=== PATIENT | female | born 1955 | race Caucasian/White ===

== ENCOUNTER → 2016-05-31 | Outpatient (CLI) | payer BC ==
[~2016-05-31] MED LIST: CHOL100010 PO; CLR10 PO; ESTR1CRE PV; MRLP120
[2016-05-31 17:57] LABS: BLOOD UREA NITROGEN 16 mg/dl (7-18); BUN/CREATININE RATIO 14.3 (10-20); CALCIUM 9.3 mg/dl (8.5-10.1); CARBON DIOXIDE 29 mmol/L (21-32); CHLORIDE 100 mmol/L (98-107); GLUCOSE 83 mg/dl (70-99); POTASSIUM 4.1 mmol/L (3.5-5.1); SODIUM 138 mmol/L (136-145)
== END | disposition home or self-care (01) ==
LOC: C.LABPVFM 16:18
PROVIDERS: ATTEND Nurse Practitioner
DX: R42 Dizziness and giddiness (principal)

== ENCOUNTER → 2016-07-22 | Outpatient (CLI) | payer BC ==
[~2016-07-22] MED LIST changes: +PRLSR20 PO
[2016-07-22 16:48] LABS: HEMATOCRIT 41.2 % (37-47); MEAN CELL VOLUME 95.8 fL (80-100); MEAN CORPUSCULAR HEMOGLOBIN 31.6 pg (25-34); MEAN PLATELET VOLUME 12.7 fL (7.4-10.4); PLATELET COUNT 150 K/uL (130-400); WHITE BLOOD COUNT 5.65 K/uL (4.8-10.8)
== END | disposition home or self-care (01) ==
LOC: C.LAB1850 16:04
PROVIDERS: ATTEND Internal Medicine Clinical Cardiac Electrophysiology
DX: R07.1 Chest pain on breathing (principal)

== ENCOUNTER → 2016-08-07 | Outpatient (CLI) | payer BC | END | disposition home or self-care (01) | LOC: C.LABPVFM 08:58 | PROVIDERS: ATTEND Nurse Practitioner | DX: Z11.59 Encounter for screening for other viral diseases (principal) ==

== ENCOUNTER → 2016-11-22 | Outpatient (CLI) | payer BC ==
[~2016-11-22] MED LIST changes: -PRLSR20 PO
--- NOTE | 2016-11-22 12:02 | DIAGNOSTIC IMAGING REPORT ---
CHEST 2 VIEWS ROUTINE CLINICAL HISTORY: Chest pressure. Dyspnea on exertion. COMPARISON STUDY: No previous studies for comparison. FINDINGS: Lung volumes are normal. No consolidation is identified and there is no evidence of pulmonary edema. Cardiomediastinal silhouette is normal. No pneumothorax or pleural effusion is present. IMPRESSION: No acute cardiopulmonary findings. Electronically signed by: Pablo Bolden M.D. 11/22/2016 12:00 PM Dictated Date/Time: 11/22/2016 11:59 AM
[2016-11-22 17:46] LABS: ALT/SGPT 22 U/L (12-78); BLOOD UREA NITROGEN 16 mg/dl (7-18); BUN/CREATININE RATIO 17.7 (10-20); CALCIUM 9.5 mg/dl (8.5-10.1); CARBON DIOXIDE 31 mmol/L (21-32); CHLORIDE 103 mmol/L (98-107); CHOLESTEROL 184 mg/dl (0-200); CREATININE 0.92 mg/dl (0.60-1.20); GLUCOSE 96 mg/dl (70-99); POTASSIUM 3.9 mmol/L (3.5-5.1); SODIUM 139 mmol/L (136-145); TRIGLYCERIDES 58 mg/dl (0-150); VERY LOW DENSITY LIPOPROT CALC 12 mg/dl
[2016-11-22 17:57] LABS: ALB/GLOB RATIO 1.2 (0.9-2); ALKALINE PHOSPHATASE 71 U/L (45-117); AST/SGOT 23 U/L (15-37); CHOLESTEROL/HDL RATIO 2.2; HDL CHOLESTEROL 83 mg/dl; LDL CHOLESTEROL CALCULATED 89 mg/dl
[2016-11-22 18:03] LABS: BASO % 0.5 %; BASO ABS # 0.03 K/uL (0-0.2); COMPLETE YES; HEMATOCRIT 44.1 % (37-47); IG% 0.2 %; LYMPH % 33.3 %; MEAN CELL VOLUME 93.8 fL (80-100); MEAN CORPUSCULAR HEMOGLOBIN 31.9 pg (25-34); MEAN PLATELET VOLUME 12.9 fL (7.4-10.4); MONO % 6.8 %; NEUT % 58.2 %; PLATELET COUNT 165 K/uL (130-400)
== END | disposition home or self-care (01) ==
LOC: C.RADPV 11:31
PROVIDERS: ATTEND Nurse Practitioner
DX: R07.89 Other chest pain (principal); R06.09 Other forms of dyspnea

== ENCOUNTER → 2017-01-18 | Outpatient (CLI) | payer BC ==
[~2017-01-18] MED LIST changes: +OPTIRAY 320 IV PRN
--- NOTE | 2017-01-18 13:55 | DIAGNOSTIC IMAGING REPORT ---
CHEST CT WITH CONTRAST CT DOSE: 216.48 mGy.cm HISTORY: Acute atypical chest pain with dyspnea on exertion SOB TECHNIQUE: Multiaxial CT images of the chest were performed following the intravenous administration of contrast. A dose lowering technique was utilized adhering to the principles of ALARA. COMPARISON: Chest radiographs 11/22/2016. FINDINGS: No dominant thyroid nodule identified. Mildly prominent and mildly enlarged lymph nodes of the mediastinum are present, for example precarinal lymph node measures 9 mm in short axis on image 135 and right hilar lymph node measures 11 mm in short axis, also on image 135. Prominent subcarinal lymph node on image 140 measures 9 mm. These are nonspecific. The heart is upper limits of normal in size. No pericardial effusion. Thoracic aorta is normal in course and caliber without dissection or aneurysm. The imaged great vessels appear patent. Pulmonary arterial tree is not well opacified, however appears unremarkable. No pleural effusion. No pneumothorax. Mild biapical pleural-parenchymal scarring. Linear bandlike subsegmental consolidative opacities of the lung bases suggest atelectasis. No suspicious pulmonary nodules are identified. The central airways are patent. Cyst of the superior pole right kidney measures up to 3.2 cm. Prior cholecystectomy. Ill-defined low attenuating 6 mm lesion seen within the left hepatic lobe, too small to characterize on this study. Soft tissues are unremarkable. Probable hemangiomas are noted within several vertebral bodies, notably T3, T11 and T12 measuring up to 2.0 cm. IMPRESSION: 1. No acute intrathoracic abnormality identified. 2. Mild mediastinal adenopathy is nonspecific and likely reactive. 3. Prior cholecystectomy. 4. Additional incidental findings as above. Electronically signed by: Cristopher Shaw M.D. 01/18/2017 1:54 PM Dictated Date/Time: 01/18/2017 1:43 PM
[2017-01-18 14:44] LABS: BASO % 0.2 %; BASO ABS # 0.01 K/uL (0-0.2); COMPLETE YES; IG% 0.2 %; LYMPH % 26.7 %; LYMPH ABS # 1.57 K/uL (1.2-3.4); MEAN CELL VOLUME 93.7 fL (80-100); MEAN CORPUSCULAR HEMOGLOBIN 31.4 pg (25-34); MEAN CORPUSCULAR HGB CONC 33.5 g/dl (32-36); MEAN PLATELET VOLUME 12.4 fL (7.4-10.4); NEUT % 65.9 %; PLATELET COUNT 142 K/uL (130-400); RED BLOOD COUNT 4.59 M/uL (4.2-5.4); WHITE BLOOD COUNT 5.87 K/uL (4.8-10.8)
[2017-01-18 14:50] LABS: PARTIAL THROMBOPLASTIN RATIO 1.2; PROTHROMBIN TIME (PATIENT) 10.6 SECONDS (9.0-12.0)
[2017-01-18 15:27] LABS: ALT/SGPT 22 U/L (12-78); AST/SGOT 19 U/L (15-37); BLOOD UREA NITROGEN 16 mg/dl (7-18); BUN/CREATININE RATIO 19.9 (10-20); CALCIUM 8.9 mg/dl (8.5-10.1); CARBON DIOXIDE 30 mmol/L (21-32); CHLORIDE 103 mmol/L (98-107); CREATININE 0.79 mg/dl (0.60-1.20); GLUCOSE 81 mg/dl (70-99); POTASSIUM 3.9 mmol/L (3.5-5.1); SODIUM 139 mmol/L (136-145)
[2017-01-18 15:30] LABS: ALB/GLOB RATIO 1.2 (0.9-2); ALKALINE PHOSPHATASE 77 U/L (45-117)
== END | disposition home or self-care (01) ==
LOC: C.CTS 12:56
PROVIDERS: ATTEND Internal Medicine Pulmonary Disease
DX: R06.09 Other forms of dyspnea (principal); R07.1 Chest pain on breathing

== ENCOUNTER 2017-01-31 07:30 | Day surgery (SDC) | payer BC ==
[~2017-01-31] VITALS: Ht 177.8 cm; Wt 75.0 kg
[2017-01-31] VITALS (12 sets, daily range): BP systolic 113–161; BP diastolic 73–86; PULSE 52–72; TEMP 36.4–36.6; O2SAT 97–100; Ht 177.8 cm; Wt 75.0 kg
[~2017-01-31 07:30] MED LIST changes: -OPTIRAY 320 IV PRN
[2017-01-31] MEDS ORDERED: MIDAZOLAM HCL 5 MG/ML 1 ML VIAL IV ONE ×2 (07:31→10:00)
[2017-01-31] MEDS ORDERED: LIDOCAINE HCL 2% LOCAL 50ML VIAL INFIL ONE (07:31)
[2017-01-31] MEDS ORDERED: FENTANYL CITRATE INJ 50 MCG/1 ML 2 ML VIAL IV ONE ×2 (07:31→10:00)
[2017-01-31] MEDS ORDERED: LIDOCAINE 4% W/AFRIN NASAL SOLN 4ML ONE (07:31)
[2017-01-31] MEDS ORDERED: PRLSR20 PO (07:50)
--- NOTE | 2017-01-31 08:49 | History & Physical Bridge Note ---
H&P Re-Evaluation Bridge Note: I have examined the patient, reviewed the History & Physical and in the interval since the performance of the History & Physical I have noted the following changes of clinical significance: No changes noted
--- NOTE | 2017-01-31 08:49 | History and Physical ---
History & Physical Date Jan 31, 2017. Chief Complaint CC: Dyspnea on exertion History of Present Illness The patient is a 61 year old female with complaints of CC: Dyspnea on exertion 62-year-old female being worked up by Dr. Jatinder Reynoso for progressive dyspnea on exertion over the last 2-3 years. She also notes palpitations, vertigo and burning in her chest. The patient's spirometry as well as echocardiograms are within normal limits. Her house is heated by hot water in the based ports but they do use wood burning Go during the cold portion of the months. Her father did passed on from complications from pneumoconiosis as he worked in the [employer] for many years. Her symptoms also do not appear to be related to the weather not relieved with a short-acting beta agonist. Chest x-ray performed 11/22/2016 was within normal limits. As stress echocardiogram on 07/07/2016 showed no signs of reversible ischemia, there were signs of diastolic dysfunction. CT of the chest performed 01/18/2017 showed bilateral mild lower lobe scarring with some borderline to mildly enlarged mediastinal lymph nodes/hilar lymph nodes. Active Problems 1. [id number] Abnormal EKG 2. Chest pain on breathing 3. Chest pressure 4. Dizzy spells 5. Dyspareunia 6. Dyspnea on exertion 7. Esophageal reflux 8. Glaucoma 9. History of shortness of breath 10. Need for hepatitis C screening test 11. Orthostatic hypotension 12. Palpitations 13. Vertigo 14. History of anal fissure 15. History of chronic cholecystitis 16. Fatigue Surgical History . History of Cholecystectomy Laparoscopic 2. History of Simple Bunion Exostectomy (Silver Procedure) 3. History of Total Abdominal Hysterectomy With Removal Of Both Ovaries Family History 1. No pertinent family history 2. No pertinent family history Never a smoker Current Meds 1. Premarin 0.625 MG/GM Vaginal Cream; INSERT 1 APPLICATOR Three a Week; 2. Meclizine HCl - 25 MG Oral Tablet; TAKE 1 TABLET 3 TIMES DAILY NEEDED; 3. Claritin 10 MG Oral Tablet; TAKE 1 TABLET DAILY; 4. MiraLax Oral Powder; MIX 1 CAPFUL INTO AT LEAST 8OZ AND DRINK DAILY 5. Travatan Z 0.004 % Ophthalmic Solution; INSTILL ONE DROP IN EACH EYE ONCE A 6. Vitamin D3 1000 UNIT Oral Tablet; TAKE 1 TABLET DAILY Allergies 1. Erythromycin Derivatives 2. Nasonex SUSP 3. Sulfa Drugs Allergies Coded Allergies: Erythromycin (Unverified Allergy, Mild, GI SYMPTOMS, 01/31/17) Uncoded Allergies: SULFA (Allergy, Mild, GI SYMPTOMS, 07/15/14) Home Medications Scheduled Cholecalciferol (Vitamin D), 1,000 INTER.UNIT PO DAILY Estrogens, Conjugated Vaginal (Premarin), PV WK Loratadine (Claritin), 10 MG PO DAILY Omeprazole (Prilosec), 20 MG PO DAILY Miscellaneous Medications Polyethylene (Miralax) Physical Examination Skin: warm/dry, no rash Eyes: normal inspection, EOMI, sclerae normal ENT: normal ENT inspection, pharynx normal Head: normocephalic, atraumatic Neck: supple, no adenopathy, trachea midline Respiratory/Chest: lungs clear, normal breath sounds, no respiratory distress Cardiovascular: regular rate, rhythm, no edema, no murmur Abdomen / GI: normal bowel sounds, non tender Back: normal inspection Extremities: normal inspection, normal range of motion Neurologic/Psych: no motor/sensory deficits, alert, normal reflexes, oriented x 3 Diagnosis MEJIA ASA Classification: ASA Class II Plan of Treatment Bronchoscopy with BAL
--- NOTE | 2017-01-31 08:50 | Procedure Note ---
Pre-Mod Sedation Assessment General Date of Moderate Sedation: Jan 31, 2017. Vital Signs: Vital Signs Past 12 Hours Date Time Temp Pulse Resp B/P (MAP) Pulse Ox O2 Delivery O2 Flow Rate FiO2 01/31/17 07:53 36.6 63 20 161/77 (105) 99 Room Air Review Cardiovascular: regular rate, rhythm, no edema, no gallop, no JVD, no murmur Abdomen: normal bowel sounds, non tender, soft, no organomegaly, no pulsatile mass Lungs: chest non-tender, lungs clear, normal breath sounds, no respiratory distress Airway Class: II Pre-Sedation Airway Assessment Oral Cavity: WNL Able to Visualize Vocal Cords: Yes Short Thick Neck: No Hx of Sleep Apnea: No Smoking Status: Never Smoker Mallampati Classification: Class I ASA Classification: Class III Procedure Planning Contraindications-for Mod Sed: None Yes Notes The planned sedation has been discussed with the patient and consent obtained. I have identified the patient, determined the appropriateness of sedation and have assessed the patient immediately prior to the procedure. All medicine(s) and interventions are by my order.
[2017-01-31] MEDS ORDERED: NURSING VERBAL MED ORDER ONE ×2 (09:00→09:30)
[2017-01-31] MEDS ORDERED: DEXTROSE 5% 1000ML 1,000 ML IV SCH (09:30)
--- NOTE | 2017-01-31 09:39 | Bronchoscopy Procedure Note ---
Bronchoscopy Procedure Note Procedure: Bronchoscopy, conscious sedation, bronchial lavage right middle lobe Consent: Obtained through the patient placed into the chart Pre-procedural diagnosis: Progressive dyspnea Post-procedural diagnosis: Progressive dyspnea Start time: 910 End time: 924 Total time: 14 minutes Analgesia: 2% liquid lidocaine: Via nebulizer 4% gel lidocaine: Via right naris 2% liquid lidocaine: Via bronchoscopy Sedation: Versed IV: 3 mg Fentanyl IV: 50 g Procedure: The [employer] TV video bronchoscope was used for this procedure and passed down through the right naris Right naris/posterior naris/posterior oropharynx: Anatomically within normal limits Glottis: Anatomically within normal limits Vocal cords: Proper abduction and abduction, anatomically within normal limits Subglottis/trachea/Lisa: Anatomically within normal limits Right bronchial tree: Right mainstem bronchus: Anatomically within normal limits Right upper lobe: Anatomically within normal limits Bronchus intermedius: Anatomically within normal limits Right middle lobe: Anatomically within normal limits Right lower lobe: Anatomically within normal limits Findings: No significant findings noted Left bronchial tree: Left mainstem bronchus: Anatomically within normal limits Left upper lobe: Anatomically within normal limits Lingula: Anatomically within normal limits Left lower lobe: Anatomically within normal limits Findings: No significant findings noted Bronchial alveolar lavage: Right middle lobe EBL: None Complications: None Follow-up: In the [facility]
--- NOTE | 2017-01-31 09:41 | Discharge Instructions ---
Discharge Instructions Date of Service Jan 31, 2017. Admission Reason for Admission: Dyspnea On Exertion, Chest Pain On Breathing Discharge Discharge Diagnosis / Problem: progressive dyspnea on exertion Discharge Goals Goal(s): Diagnostic testing Activity Recommendations Activity Limitations: resume your previous activity . Instructions / Follow-Up Instructions / Follow-Up Follow-up in the [facility] pulmonary division with Dr. Jourdan Reynoso or Dr. Cobian Current Hospital Diet Patient's current hospital diet: Discharge Diet Recommended Diet: Regular Diet Procedures Procedures Performed: Bronchoscopy, conscious sedation, bronchial lavage Pending Studies Studies pending at discharge: no Laboratory Results Lipid Panel Test 11/22/16 11:46 Range/Units Triglycerides Level 58 0-150 mg/dl Cholesterol Level 184 0-200 mg/dl HDL Cholesterol 83 mg/dl Cholesterol/HDL Ratio 2.2 LDL Cholesterol, Calculated 89 mg/dl Medical Emergencies . Who to Call and When: Medical Emergencies: If at any time you feel your situation is an emergency, please call 911 immediately. . Non-Emergent Contact Non-Emergency issues call your: [employer] . . "Provider Documentation" section prepared by Bishop Cobian. . VTE Core Measure Inpt VTE Proph given/why not?: Treatment not indicated
== END 2017-01-31 11:40 | disposition home or self-care (01) ==
LOC: C.ACU 07:30
PROVIDERS: ATTEND Internal Medicine Critical Care Medicine
DX: R06.00 Dyspnea, unspecified (principal); K21.9 Gastro-esophageal reflux disease without esophagitis; H40.9 Unspecified glaucoma; Z79.899 Other long term (current) drug therapy

== ENCOUNTER → 2017-10-21 | Outpatient (CLI) | payer OTHER ==
[~2017-10-21] MED LIST changes: -CHOL100010 PO; +CHOL2000 PO; +DOCU-94 PO; -ESTR1CRE PV; +MECL1TAB42 PO; -MRLP120; +MRLP120 PO; +ONDA4TAB46 PO; +OXYC-57 PO; +PREMARIN CREAM TOP; +PRLSR20 PO
== END | disposition home or self-care (01) ==
LOC: C.LABPVFM 10:57
PROVIDERS: ATTEND Family Medicine
DX: R39.9 Unspecified symptoms and signs involving the genitourinary system (principal)

== ENCOUNTER → 2017-11-11 | Outpatient (CLI) | payer OTHER | END | disposition home or self-care (01) | LOC: C.LABPVFM 11:50 | PROVIDERS: ATTEND Family Medicine | DX: R39.9 Unspecified symptoms and signs involving the genitourinary system (principal) ==

== ENCOUNTER 2025-01-31 12:19 | Inpatient (IN) ==
[2025-01-31 13:17] LABS: Hematocrit (blood only) 45.3 % (37.0-47.0); Hemoglobin 15.1 g/dl (12.0-16.0); Immature Granulocytes # (auto) 0.01 K/uL (0.01-0.20); Immature Granulocytes % (auto) 0.1 %; Mean Corpuscular Hemoglobin 31.3 pg (25.0-34.0); Mean Corpuscular Volume 93.8 fL (80.0-100.0); Platelet Count 182 K/uL (130-400); RDW Standard Deviation 45.1 fL (36.4-46.3); Red Blood Count 4.83 M/uL (4.20-5.40); White Blood Count 7.26 K/ul (4.8-10.8)
--- NOTE | 2025-01-31 13:23 | XRay Report ---
XR chest 1V not portable HISTORY: 69 years-old Female Chest pain, nonspecific COMPARISON: 05/18/2019 TECHNIQUE: PA view of the chest FINDINGS: Cardiomediastinal and hilar silhouettes are within normal limits. Mild linear scarring/atelectasis of the left lung base. No pneumothorax, pleural effusion or airspace consolidation. Degenerative change s of the shoulders and spine. IMPRESSION: No acute process. ACT 112: Negative or not required by law. The above report was generated using voice recognition software. It may contain grammatical, syntax o r spelling errors. Electronically signed by: Alec Shaw M.D. 01/31/2025 1:21 PM
[2025-01-31 13:33] LABS: Alanine Aminotransferase 17.0 U/L (7-52); Albumin Globulin Ratio 1.3 (0.9-2); Albumin Level 4.2 gm/dl (3.4-5.0); Alkaline Phosphatase 67.0 U/L (34-104); Anion Gap 11.0 (3-11); Bilirubin,Total 0.7 mg/dl (0.2-1.0); Blood Urea Nitrogen 15.0 mg/dl (6-23); Calcium 9.7 mg/dl (8.6-10.3); Carbon Dioxide 26.0 mmol/L (21-32); Chloride 103.0 mmol/L (98-107); Creatinine Clr Calc Pharmacy 53.4 ml/min; Globulin 3.3 gm/dl (2.5-4.0); Glucose 113.0 mg/dl (70-99(Fasting)); Potassium 3.9 mmol/L (3.5-5.1); Sodium 140.0 mmol/L (136-145); Total Protein 7.5 gm/dl (6.0-8.3)
[2025-01-31 13:37] LABS: INR 1.0 (0.9-1.1); Partial Thromboplastin Time 28 Seconds (21-31); Prothrombin Time 10.4 Seconds (9.0-12.0)
--- NOTE | 2025-01-31 13:42 | Emergency Department Note ---
Impression & Plan Exertional dyspnea, Chest pain ED Provider Note CHIEF COMPLAINT: Chest pain HISTORY OF PRESENTING ILLNESS: The patient is a pleasant, 69-year-old female who arrives to the emergency department for evaluation of dyspnea on exertion, with chest pain. The patient reports she was vacuuming today, and noted significant shortness of breath with chest pain. She states previously symptoms were over the course of a few months, and were tolerable however now the chest pain and shortness of breath is significant, and she has to sit for extended periods of time to recover. She reports no cardiac, or respiratory history. She states no recent fevers, cough, or congestion. She denies long trips, calf pain, lower extremity swelling, or hormone use. She is well-appearing, with stable vital signs. REVIEW OF SYSTEMS: See HPI for pertinent positives and pertinent negatives. ALLERGIES: See below MEDICATIONS: See below PAST MEDICAL HISTORY: See below PHYSICAL EXAM: VITALS: Vitals are noted on the nurse's note and reviewed by myself. Vital signs stable. GENERAL: 69-year-old female, in no acute distress, nondiaphoretic, well- developed well-nourished. SKIN: The skin was without rashes, erythema, edema, or bruising. HEAD: Normocephalic atraumatic. NECK: Supple without nuchal rigidity. No lymphadenopathy. Cervical spine is nontender. No JVD. HEART: Regular rate and rhythm without murmurs gallops or rubs. LUNGS: Clear to auscultation bilaterally without wheezes, rales or rhonchi. No retractions or accessory muscle use. ABDOMEN: Positive bowel sounds x 4. Soft, nontender, without masses or organomegaly. Aguero sign negative. No guarding or rebound tenderness. MUSCULOSKELETAL: No muscle atrophy, erythema, or edema noted. Normal gait. Strength 5/5 throughout. NEURO: Patient was alert and oriented to person place and time. No focal neurological deficits. DIFFERENTIAL DIAGNOSIS: Reactive airway disease, pneumonia, pneumothorax, COPD, CHF, infections, cardiac ischemia, pulmonary embolism, musculoskeletal, gastrointestinal, as well as other pathologies. ED COURSE AND MEDICAL DECISION MAKING: HISTORY FROM INDEPENDENT HISTORIAN: at bedside serving as secondary historian. MEDICATIONS GIVEN: Albuterol inhaler, 2 puffs MONITOR: Continuous cardiac rn: Order was placed for continuous cardiac rn. Patient was placed on the cardiac rn and continuous pulse ox. Patient was noted to be in normal sinus rhythm at an initial rate of 80 bpm per my interpretation. EKG: EKG was interpreted by myself as normal sinus rhythm at a rate of 98 bpm, no ST elevation or depression. Incomplete right bundle branch block present, which is consistent with previous EKG of May 18, 2019.. INTERPRETATION OF LABS: I interpreted the labs with full lab results as below in the lab section of this note. Pertinent lab results discussed in the MDM section below. INTERPRETATION OF IMAGING: Imaging studies were interpreted by myself and read by radiology as per the imaging section of this note. MDM SUMMARY: The patient is a pleasant, 69-year-old female who arrives to the emergency department for evaluation of the above-stated complaint. Saline lock was established, lab work was obtained. CBC shows no leukocytosis, no anemia. Coags within normal limits. CMP is unremarkable. Initial troponin negative, repeat []. Upper respiratory viral panel negative. Chest x-ray per my interpretation shows no acute process. CT PE study obtained, to rule out pulmonary embolism, or other concerning findings was obtained which per my interpretation shows a small focus of ground glass opacity within the right middle lobe suggestive of an infectious process such as bronchiolitis, no pulmonary emboli identified. Patient was provided an albuterol inhaler, and an ambulatory pulse oximetry was performed, the patient did not drop below 90%, however she did have increased work of breathing. I do believe the patient requires admission for further cardiac workup, due to the exertional dyspnea, and chest pain. She may require stress test, or echo. [facility] the patient for [facility]. Please refer to their documentation for further workup and care. DIAGNOSIS: Exertional dyspnea, chest pain The patient's case was discussed with Dr. Wade, who agreed with my evaluation and treatment plan. The chart was completed utilizing [employer] Speech voice recognition software. Grammatical errors, random word insertions, pronoun errors, and incomplete sentences are an occasional consequence of this system due to software limitations, ambient noise, and hardware issues. Any formal questions or concerns about the content, text, or information contained within the body of this dictation should be directly addressed to the provider for clarification. TREATMENT PLAN/DISCHARGE INSTRUCTIONS: [] Past Med/Surg History Problem List (Updated 01/31/25 @ 17:50 by OPAL Webber) Chest pain (Acute) Exertional dyspnea (Acute) Tendinopathy of left gluteal region Hemorrhoid Insomnia Arthralgia Diverticulitis large intestine Left hip pain Greater trochanteric pain syndrome of left lower extremity Chronic SI joint pain Annular tear of lumbar disc L5-S1 per MRI dated 01/23/2024 Lumbar radiculopathy Sciatica Low back pain Anemia Osteopenia Asthma mild, no meds Dyspareunia Acid reflux disease Medical History Osteopenia Sciatica Lumbar radiculopathy Greater trochanteric pain syndrome of left lower extremity Acid reflux disease Nausea and vomiting after administration of anesthetic agent "many years ago, but not with any procedures in more recent years" Hx of gastroesophageal reflux (GERD) History of asthma "Mild, no meds" Hx of osteopenia History of anemia no recent issues Hx of low back pain w/sciatica per pt; "has gotten better since recent injection 08/24/24" Chronic SI joint pain 08/24/24 most recent injection, f/u [facility] Glaucoma hx SNHL (sensorineural hearing loss) Vertigo hx Surgical History Hx of left cataract extraction (09/12/24) Hx of colonoscopy Hx of exploratory laparotomy 2019, removed appendix Hx laparoscopic cholecystectomy History of bunionectomy H/O: hysterectomy H/O hemorrhoidectomy Family History Grandfather Asthma Aunt Breast cancer Cancer uterus cancer Mother Lung cancer Cancer brain Uncle Cancer brain cancer prostate cancer Prostate cancer Denies family history of Ovarian cancer Myocardial infarction Colorectal cancer Social History Smoking Status: Never smoker Second Hand Exposure: Yes (growing up); Do You Dip or Chew Tobacco: No; Hx Alcohol Use: Yes Hx Substance Use: No Preferred Language: Divehi Communication Ability: Effective Hearing Ability: Normal Technical Support Internship Required: No Beliefs That Will Affect Care: None marital status: Current Living Situation: Spouse current occupational status: retired How many Children do You have: 2 Feels Safe at Home: Yes Childhood Exposure to Second-Hand Smoke: Yes Diet: regular caffeine: Yes Dental Care, Regularly: Yes Physical Activity Frequency: 3-4 Times per Week Seatbelt Use: always Sunscreen Use: Yes Assistive Devices: None Allergies Allergies Allergy/AdvReac Type Severity Reaction Status Date / Time mometasone furoate Allergy Unknown UNKNOWN Verified 01/31/25 16:48 erythromycin base AdvReac Intermediate GI SYMPTOMS Verified 01/31/25 16:48 Sulfa (Sulfonamide AdvReac Intermediate GI SYMPTOMS Verified 01/31/25 16:48 Antibiotics) Home Meds Home Medications Medication Instructions Recorded Confirmed loratadine 10 mg tablet 10 mg PO QAM Congestion 02/24/18 01/31/25 meclizine 12.5 mg tablet 12.5 mg PO UD PRN Vertigo 05/18/19 01/31/25 polyethylene glycol 3350 17 17 g PO QAM 10/13/20 01/31/25 gram/dose oral powder (Miralax) cholecalciferol (vitamin D3) 25 25 mcg PO DAILY 09/03/24 01/31/25 mcg (1,000 unit) capsule (Vitamin D3) calcium carbonate (Calcium 600) 600 mg PO DAILY 01/31/25 01/31/25 ibuprofen 200 mg tablet 400 mg PO Q6H PRN Pain 01/31/25 01/31/25 Previous Rx's Medication Instructions Recorded conjugated estrogens 0.625 mg/gram 0.625 mg vaginal DAILY PRN vaginal 06/11/21 vaginal cream (Premarin) dryness #30 grams omeprazole 20 mg capsule,delayed 20 mg PO QAM #90 caps 09/17/24 release ondansetron 4 mg disintegrating 4 mg PO Q8H PRN nausea and 10/12/24 tablet vomiting #20 tabs hydrocortisone 2.5 % topical cream 1 applic HI DAILY PRN hemorrhoids 01/22/25 with perineal applicator #30 grams (Proctosol HC) Results & Data (ED) Vital Signs Vital Signs - 24 hr 01/31/25 12:19 01/31/25 12:21 01/31/25 13:21 Temperature 36.3 C L Temperature Source Temporal Artery Scan Pulse Rate 100 H Pulse Rate [Exercises] Pulse Rate [Finger] 80 Pulse Rhythm [Finger] Pulse Strength [Finger] Respiratory Rate 16 18 Respiratory Rate [Exercises] Respiratory Effort / Characteristics Respiratory Depth Respiratory Pattern Blood Pressure 111/74 Blood Pressure [Right Arm] 131/81 Blood Pressure Mean 86 Blood Pressure Mean [Right Arm] 97 Blood Pressure Position [Right Arm] Pulse Oximetry 97 96 Pulse Oximetry [Exercises] Oxygen Delivery Method Room Air Room Air Room Air Sepsis New/Unexplained Change in Mental Status No Sepsis Action Taken by Nursing No Action Required Oxygen Flow Rate - Titration 97 01/31/25 14:19 01/31/25 14:51 01/31/25 16:00 Temperature Temperature Source Pulse Rate 73 Pulse Rate [Exercises] Pulse Rate [Finger] 57 L 55 L Pulse Rhythm [Finger] Regular Pulse Strength [Finger] Normal Respiratory Rate 16 13 Respiratory Rate [Exercises] Respiratory Effort / Characteristics Non-Labored Spontaneous Respiratory Depth Normal Respiratory Pattern Regular Blood Pressure Blood Pressure [Right Arm] 138/78 129/69 Blood Pressure Mean Blood Pressure Mean [Right Arm] 98 89 Blood Pressure Position [Right Arm] Lying Pulse Oximetry 99 98 Pulse Oximetry [Exercises] Oxygen Delivery Method Room Air Room Air Sepsis New/Unexplained Change in Mental Status Sepsis Action Taken by Nursing Oxygen Flow Rate - Titration 01/31/25 17:00 01/31/25 17:25 01/31/25 17:42 Temperature Temperature Source Pulse Rate 61 Pulse Rate [Exercises] 86 Pulse Rate [Finger] 63 Pulse Rhythm [Finger] Regular Pulse Strength [Finger] Normal Respiratory Rate 16 Respiratory Rate [Exercises] 22 Respiratory Effort / Characteristics Non-Labored Spontaneous Respiratory Depth Normal Respiratory Pattern Regular Blood Pressure Blood Pressure [Right Arm] 148/73 H Blood Pressure Mean Blood Pressure Mean [Right Arm] 98 Blood Pressure Position [Right Arm] Lying Pulse Oximetry 97 Pulse Oximetry [Exercises] 97 Oxygen Delivery Method Room Air Room Air Sepsis New/Unexplained Change in Mental Status Sepsis Action Taken by Nursing Oxygen Flow Rate - Titration Home Medications Current Medication List: was personally reviewed by me Laboratory Data Attestation: I reviewed the patient's lab results. 01/31/25 12:41 01/31/25 12:41 Lab Results 01/31/25 01/31/25 Range/Units 12:41 Unknown WBC 7.26 (4.8-10.8) K/ul RBC 4.83 (4.20-5.40) M/uL Hgb 15.1 (12.0-16.0) g/dl Hct 45.3 (37.0-47.0) % MCV 93.8 (80.0-100.0) fL MCH 31.3 (25.0-34.0) pg MCHC 33.3 (32.0-36.0) g/dL RDW Std Deviation 45.1 (36.4-46.3) fL RDW Coeff of Genet 13.1 (11.5-14.5) % Plt Count 182 (130-400) K/uL MPV 12.5 H (9.4-12.4) fL Immature Gran % (Auto) 0.1 % Neut % (Auto) 71.4 % Lymph % (Auto) 21.1 % [place] % (Auto) 5.9 % Eos % (Auto) 1.1 % Baso % (Auto) 0.4 % Neut # (Auto) 5.18 (1.40-6.50) K/uL Lymph # (Auto) 1.53 (1.20-3.40) K/uL [place] # (Auto) 0.43 (0.11-0.59) K/uL Eos # (Auto) 0.08 (0.00-0.50) K/uL Baso # (Auto) 0.03 (0.00-0.20) K/uL Immature Gran # (Auto) 0.01 (0.01-0.20) K/uL PT 10.4 (9.0-12.0) Seconds INR 1.0 (0.9-1.1) APTT 28 (21-31) Seconds PTT Ratio 1.0 Sodium 140 (136-145) mmol/L Potassium 3.9 (3.5-5.1) mmol/L Chloride 103 (98-107) mmol/L Carbon Dioxide 26 (21-32) mmol/L Anion Gap 11 (3-11) BUN 15 (6-23) mg/dl Creatinine 1.06 (0.6-1.2) mg/dl Est Cr Clr Drug Dosing 53.4 ml/min eGFR 56.51 BUN/Creatinine Ratio 14.2 (10-20) Glucose 113 H (70-99(Fasting)) mg/dl Calcium 9.7 (8.6-10.3) mg/dl Total Bilirubin 0.7 (0.2-1.0) mg/dl AST 26 (13-39) U/L ALT 17 (7-52) U/L Alkaline Phosphatase 67 (34-104) U/L Troponin I High Sens 5.9 (0-14) pg/ml Total Protein 7.5 (6.0-8.3) gm/dl Albumin 4.2 (3.4-5.0) gm/dl Globulin 3.3 (2.5-4.0) gm/dl Albumin/Globulin Ratio 1.3 (0.9-2) Adenovirus (PCR) Not Detected (NotDetected) B. pertussis DNA (PCR) Not Detected (NotDetected) B.parapertussis DNA PCR Not Detected (NotDetected) C. pneumoniae DNA (PCR) Not Detected (NotDetected) Coronavirus OC43 (PCR) Not Detected (NotDetected) Coronavirus HKU1 (PCR) Not Detected (NotDetected) Coronavirus 229E (PCR) Not Detected (NotDetected) SARS-CoV-2 (PCR) Not Detected (NotDetected) Coronavirus NL63 (PCR) Not Detected (NotDetected) Human Metapneumovir PCR Not Detected (NotDetected) Influenza Type A (PCR) Not Detected (NotDetected) Influenza Type B (PCR) Not Detected (NotDetected) M. pneumoniae (PCR) Not Detected (NotDetected) Parainfluenza 1 (PCR) Not Detected (NotDetected) Parainfluenza 2 (PCR) Not Detected (NotDetected) Parainfluenza 3 (PCR) Not Detected (NotDetected) Parainfluenza 4 (PCR) Not Detected (NotDetected) RSV (PCR) Not Detected (NotDetected) Entero/Rhino (PCR) Not Detected (NotDetected) Administered Medications Discontinued Medications Albuterol (Albuterol Hfa 8 Gm Inhaler) 2 puffs INH NOW ONE Stop: 01/31/25 16:15 Last Admin: 01/31/25 16:46 Dose: 2 puffs Documented By: CIRO Ioversol (Optiray 320 125ml) 112 ml IV ONCE ONE Stop: 01/31/25 14:31 Last Admin: 01/31/25 14:30 Dose: 112 ml Documented By: DENIA Imaging Data Attestation: I personally reviewed and interpreted this imaging study as follows: Radiologist's Impression: Chest X-Ray 01/31/25 12:26 XR chest 1V not portable HISTORY: 69 years-old Female Chest pain, nonspecific COMPARISON: 05/18/2019 TECHNIQUE: PA view of the chest FINDINGS: Cardiomediastinal and hilar silhouettes are within normal limits. Mild linear scarring/atelectasis of the left lung base. No pneumothorax, pleural effusion or airspace consolidation. Degenerative changes of the shoulders and spine. IMPRESSION: No acute process. ACT 112: Negative or not required by law. The above report was generated using voice recognition software. It may contain grammatical, syntax or spelling errors. Electronically signed by: Alec Shaw M.D. 01/31/2025 1:21 PM Chest CTA 01/31/25 13:48 CT ANGIOGRAM OF THE CHEST CLINICAL HISTORY: Chest pain. Shortness of breath. Evaluate for pulmonary embolus. COMPARISON STUDY: Chest CT January 18, 2017. Chest radiograph performed earlier today. TECHNIQUE: Following the IV administration of 112 cc of Optiray 320, CT angiogram of the chest was performed from the upper abdomen to the thoracic inlet utilizing the pulmonary embolus protocol. Images are reviewed in the axial, sagittal, and coronal planes. 3-D MIPS images are created and assessed. IV contrast was administered without complication. A dose lowering technique was utilized adhering to the principles of ALARA. CT DOSE: 451.09 mGy.cm FINDINGS: No pulmonary emboli are identified. The size of the heart is at the upper limits of normal. There is no pericardial effusion. No thoracic lymphadenopathy is present. No pneumothorax or pleural effusion is present. A small focus of groundglass opacity within the right middle lobe on image 79 of 225 is noted. Lower lobe ground glass opacities favor atelectasis. Central airways are patent. Water attenuation right upper pole renal lesion represents a cyst. IMPRESSION: 1. No pulmonary emboli identified. 2. Small focus of groundglass opacity within the right middle lobe suggestive of an infectious process such as bronchiolitis. ACT 112: Negative or not required by law. Electronically signed by: Pablo Bolden M.D. 01/31/2025 2:59 PM Discharge Plan Visit Data Chief Complaint: Chest Pain Stated Complaint: CHEST PAIN ED Provider: Berny Wade ED Midlevel Provider: Chela Hernandez Discharge Problem: Exertional dyspnea, Chest pain Patient Disposition: Admitted As Inpatient Condition: Fair Forms Stand Alone Forms: [facility] Prescriptions Prescriptions: No Action Premarin 0.625 mg/gram cream 0.625 mg vaginal DAILY PRN (Reason: vaginal dryness) Qty: 30 2RF omeprazole 20 mg capsule,delayed release(DR/EC) 20 mg PO QAM Qty: 90 3RF Rx Instructions: [facility] patient requesting prescription be mailed to her home address ondansetron 4 mg tablet,disintegrating 4 mg PO Q8H PRN (Reason: nausea and vomiting) Qty: 20 1RF hydrocortisone [Proctosol HC] 2.5 % cream with perineal applicator 1 applic HI DAILY PRN (Reason: hemorrhoids) Qty: 30 1RF polyethylene glycol 3350 [Miralax] 17 gram/dose powder 17 g PO QAM meclizine 12.5 mg Tablet 12.5 mg PO UD PRN (Reason: Vertigo) loratadine 10 mg Tablet 10 mg PO QAM cholecalciferol (vitamin D3) [Vitamin D3] 25 mcg (1,000 unit) Capsule 25 mcg PO DAILY calcium carbonate [Calcium 600] 600 mg calcium (1,500 mg) Tablet 600 mg PO DAILY ibuprofen 200 mg Tablet 400 mg PO Q6H PRN (Reason: Pain) Referrals Referrals: Tram Ricketts CRNP [Primary Care Provider] -
[2025-01-31] MEDS: OPTIRAY 320 125ml IV ONE (14:30)
--- NOTE | 2025-01-31 15:01 | CT Scan Report ---
CT ANGIOGRAM OF THE CHEST CLINICAL HISTORY: Chest pain. Shortness of breath. Evaluate for pulmonary embolus. COMPARISON STUDY: Chest CT January 18, 2017. Chest radiograph performed earlier today. TECHNIQUE: Following the IV administration of 112 cc of Optiray 320, CT angiogram of the chest was pe rformed from the upper abdomen to the thoracic inlet utilizing the pulmonary embolus protocol. Images are reviewed in the axial, sagittal, and coronal planes. 3-D MIPS images are created and assessed. I V contrast was administered without complication. A dose lowering technique was utilized adhering to the principles of ALARA. CT DOSE: 451.09 mGy.cm FINDINGS: No pulmonary emboli are identified. The size of the heart is at the upper limits of normal. There is no pericardial effusion. No thoracic lymphadenopathy is present. No pneumothorax or pleural effusion is present. A small focus of groundglass opacity within the right middle lobe on image 79 o f 225 is noted. Lower lobe ground glass opacities favor atelectasis. Central airways are patent. Wate r attenuation right upper pole renal lesion represents a cyst. IMPRESSION: 1. No pulmonary emboli identified. 2. Small focus of groundglass opacity within the right middle lobe suggestive of an infectious proces s such as bronchiolitis. ACT 112: Negative or not required by law. Electronically signed by: Pablo Bolden M.D. 01/31/2025 2:59 PM
--- NOTE | 2025-01-31 15:54 | Electrocardiogram Report ---
Test Reason : Blood Pressure : */* mmHG Vent. Rate : 98 BPM Atrial Rate : 98 BPM P-R Int : 138 ms QRS Dur : 72 ms QT Int : 342 ms P-R-T Axes : 64 -40 46 degrees QTcB Int : 436 ms Normal sinus rhythm Left axis deviation Incomplete right bundle branch block Abnormal ECG When compared with ECG of 18-May-2019 16:10, Vent. rate has increased by 36 bpm Confirmed by Yon Patel ([id number]) on 01/31/2025 3:53:59 PM Referred By: Confirmed By: Yon Patel
[2025-01-31] MEDS: ALBUTEROL HFA 8 GM INHALER INH ONE (16:46)
[2025-01-31 16:56] LABS: Chlamydia pneumoniae PCR Not Detected (NotDetected); Coronavirus 229E PCR Not Detected (NotDetected); Coronavirus CoV-2 (COVID19)PCR Not Detected (NotDetected); Coronavirus HKU1 PCR Not Detected (NotDetected); Coronavirus NL63 PCR Not Detected (NotDetected); Coronavirus OC43PCR Not Detected (NotDetected); Human Metapneumovirus PCR Not Detected (NotDetected); Parainfluenza Virus 1 PCR Not Detected (NotDetected); Parainfluenza Virus 2 PCR Not Detected (NotDetected); Parainfluenza Virus 3 PCR Not Detected (NotDetected); Parainfluenza Virus 4 PCR Not Detected (NotDetected); Respiratory Syncytial VirusPCR Not Detected (NotDetected); Rhinovirus/Enterovirus PCR Not Detected (NotDetected)
--- NOTE | 2025-01-31 17:09 | History & Physical Report ---
Date of Service January 31, 2025 Assessment & Plan (1) Exertional dyspnea: (2) Chest pain: (3) NSTEMI (non-ST elevated myocardial infarction): Ronald Stockton is a 69F with a PMHx of GERD , history of asthma, chronic SI joint pain who presents with 24 hours of worsening dyspnea on exertion and chest pain. Initial evaluation with mild trop elevation at 88, CTA chest with small ground glass opacity suggestive of bronchiolitis. Admitted for further cardiac workup #MEJIA | Chest Pain | NSTEMI - MEJIA x 5 years but acutely worsened in the last 24 hours. CTA concerning for bronchiolitis but biofire negative, no increased cough, on room air. Troponin 5 --> 88, trend q6H Give Nitro and ASA load now. Continue ASA 81mg Qam, metoprolol tartrate 12.5mg BID Start heparin drip Nitro paste jerel, SL nitro prn chest pain Bedrest Echo ordered Consult cardiology No EKG changes suggestive of ischemia AM CBC, BMP and lipid panel #GERD - continue PPI Dispo: admit to PCU, DVT proh: heparin drip Admission and Anticipated Discharge Date Admission Date: NSTEMI Trop History of Present Illness Chief Complaint: shortness of breath Primary Care Provider: OPAL Vee Kath is a 69F with a PMHx of GERD , history of asthma, chronic SI joint pain who presents with 24 hours of worsening dyspnea on exertion and chest pain. Patient reports that for the last 5 years she has been unable to do a flight of stairs due to shortness of breath and has to take breaks. This has gotten worse in the last 24 hours. Last night she states that she was having worsening heartburn and took some antacids and went to bed, woke up this morning and felt okay. Then when she was running the vacuum she had worsening heartburn and diaphoresis and lightheadedness. She tried to step outside to calm things down, she also reports that her heart was pounding at this time. After that, She was standing at the sink peeling potatoes and her symptoms returned. She had to sit down and continued to feel dizzy and lightheaded. This this is what prompted her to call her and then she presented to the ER. At the time of my assessment she is rating her chest pain symptoms a 1 out of 10 states earlier they are a 6 or 7 out of 10. She recently completed an ambulatory pulse ox trial with the ER nurse and her oxygen stayed above 97% and she did not have any repeat of her symptoms when asked to further explain her symptoms she is not able to describe them any further than what it feels like heartburn. She does report that it radiates up into the neck, she denies that it radiates to the jaw or down the arm. when asked if it feels like a squeezing or tightening sensation she says yes, when asked if it feels like someone is sitting on her chest she also says yes. Her symptoms returned when I asked her to take deep breaths so that I could auscultate her lungs. She does not smoke, has never been a smoker. Does report that her brother and sister have A-fib and that her father from a heart attack. In discussion of CODE STATUS she would like to be a full code ED course: Albuterol inhaler x 2 Allergies Allergy/AdvReac Type Severity Reaction Status Date / Time mometasone furoate Allergy Unknown UNKNOWN Verified 01/31/25 16:48 erythromycin base AdvReac Intermediate GI SYMPTOMS Verified 01/31/25 16:48 Sulfa (Sulfonamide AdvReac Intermediate GI SYMPTOMS Verified 01/31/25 16:48 Antibiotics) Home Medications Medication Instructions Recorded Confirmed Type loratadine 10 mg tablet 10 mg PO QAM Congestion 02/24/18 01/31/25 History meclizine 12.5 mg tablet 12.5 mg PO UD PRN Vertigo 05/18/19 01/31/25 History polyethylene glycol 3350 17 17 g PO QAM 10/13/20 01/31/25 History gram/dose oral powder (Miralax) conjugated estrogens 0.625 mg/gram 0.625 mg vaginal DAILY PRN vaginal 06/11/21 01/31/25 Rx vaginal cream (Premarin) dryness #30 grams cholecalciferol (vitamin D3) 25 25 mcg PO DAILY 09/03/24 01/31/25 History mcg (1,000 unit) capsule (Vitamin D3) omeprazole 20 mg capsule,delayed 20 mg PO QAM #90 caps 09/17/24 01/31/25 Rx release ondansetron 4 mg disintegrating 4 mg PO Q8H PRN nausea and 07/11/25 10/30/25 Rx tablet vomiting #20 tabs hydrocortisone 2.5 % topical cream 1 applic AR DAILY PRN hemorrhoids 01/22/25 01/31/25 Rx with perineal applicator #30 grams (Proctosol HC) calcium carbonate (Calcium 600) 600 mg PO DAILY 01/31/25 01/31/25 History ibuprofen 200 mg tablet 400 mg PO Q6H PRN Pain 01/31/25 01/31/25 History Past Med/Surg History Problem List (Updated 01/31/25 @ 18:32 by Caryn Harding PA-C) NSTEMI (non-ST elevated myocardial infarction) Elevated troponin Chest pain (Acute) Exertional dyspnea (Acute) Tendinopathy of left gluteal region Hemorrhoid Insomnia Arthralgia Diverticulitis large intestine Left hip pain Greater trochanteric pain syndrome of left lower extremity Chronic SI joint pain Annular tear of lumbar disc L5-S1 per MRI dated 01/23/2024 Lumbar radiculopathy Sciatica Low back pain Anemia Osteopenia Asthma mild, no meds Dyspareunia Acid reflux disease Medical History Osteopenia Sciatica Lumbar radiculopathy Greater trochanteric pain syndrome of left lower extremity Acid reflux disease Nausea and vomiting after administration of anesthetic agent "many years ago, but not with any procedures in more recent years" Hx of gastroesophageal reflux (GERD) History of asthma "Mild, no meds" Hx of osteopenia History of anemia no recent issues Hx of low back pain w/sciatica per pt; "has gotten better since recent injection 08/24/24" Chronic SI joint pain 08/24/24 most recent injection, f/u [facility] Glaucoma hx SNHL (sensorineural hearing loss) Vertigo hx Surgical History Hx of left cataract extraction (09/12/24) Hx of colonoscopy Hx of exploratory laparotomy 2019, removed appendix Hx laparoscopic cholecystectomy History of bunionectomy H/O: hysterectomy H/O hemorrhoidectomy Family History Grandfather Asthma Aunt Breast cancer Cancer uterus cancer Mother Lung cancer Cancer brain Uncle Cancer brain cancer prostate cancer Prostate cancer Denies family history of Ovarian cancer Myocardial infarction Colorectal cancer Social History Smoking Status: Never smoker Second Hand Exposure: Yes (growing up); Do You Dip or Chew Tobacco: No; Hx Alcohol Use: Yes Hx Substance Use: No Preferred Language: Bhutanese Communication Ability: Effective Hearing Ability: Normal Help Desk Representative Required: No Beliefs That Will Affect Care: None marital status: Current Living Situation: Spouse current occupational status: retired How many Children do You have: 2 Feels Safe at Home: Yes Childhood Exposure to Second-Hand Smoke: Yes Diet: regular caffeine: Yes Dental Care, Regularly: Yes Physical Activity Frequency: 3-4 Times per Week Seatbelt Use: always Sunscreen Use: Yes Assistive Devices: None Review of Systems Review of Systems: All systems reviewed & are unremarkable except as noted in Subjective Physical Exam Physical Exam: General: NAD, VS as above Resp: normal respiratory effort, lungs clear to auscultation CV: RRR, no murmur. chest pain is nonreproducible on exam Abd: normal bowel sounds, non tender, soft Extremities: Moves all extremities, no LE edema Neuro: A&O x3, Skin: intact, no lesions noted Results & Data Results & Data Vital Signs (Past 12 Hours) Vital Signs Temp Pulse Pulse Resp BP BP Pulse Ox 01/31/25 14:51 57 L 16 138/78 99 01/31/25 14:19 73 01/31/25 13:21 01/31/25 12:21 97.3 F L 100 H 18 111/74 96 01/31/25 12:19 80 16 131/81 97 O2 Del Method 01/31/25 14:51 Room Air 01/31/25 14:19 01/31/25 13:21 Room Air 01/31/25 12:21 Room Air 01/31/25 12:19 Room Air Laboratory Results CBC, chemistry reviewed Troponin reviewed Respiratory BioFire reviewed Diagnostic Findings chest x-ray reviewed CTA chest revealed Supervising Physician Co-Signing Physician Notes I personally saw and examined the patient. I independently reviewed the labs, E KG, imaging, problem list, medication list, past medical history and family history. I verified all soares points and agree with Caryn Harding PA-C with the following exceptions and/or additions: 69 year old female presents to the ER with intermittent chest pain. Last was 11/11 around 12:30pm went away without intervention and then returned as 09/11 around 2pm. Both at rest. The rest of the time is has been with exertion. More chronically having significant shortness of breath on any incline although unclear if this has been getting worse and is related O/E HS RRR, no murmurs, Chest CTAB, Abdo SNT A/P NSTEMI - ASA, clopidogrel, heparin IV low dose with bolus, metoprolol tartrate (reduced due to intermittent bradycardia), nitroglycerin 0.4 SL given and resolved her 04/13 pain - will therefore start nitro paste to stop this coming back, atorvastatin 40mg HS, TTE, NPO after midnight for cardiac catheterization tomorrow PG Care Time/CCT Total # of Minutes Spent Total Time Spent with Patient: Total time spent is greater than 50% in coordination of care (as documented) at patient's floor/unit and/or counseling patient: Coding Level of Care Code 75021 INT INP/OBS CARE 3/75MIN Diagnoses Exertional dyspnea R06.09 Chest pain R07.9 NSTEMI (non-ST elevated myocardial infarction) I21.4
[2025-01-31] MEDS: NITROGLYCERIN SL 0.4 MG/TAB TAB SL STA (18:24)
[2025-01-31] MEDS: ASPIRIN 81 MG CHEW PO STA (18:25)
[2025-01-31] MEDS ORDERED: HEPARIN 25000 UNIT/500 ML D5W 25,000 UNITS/500 ML BAG IV SCH (19:00)
[2025-01-31] MEDS: HEPARIN 25000 UNIT/500 ML D5W 25,000 UNITS/500 ML BAG IV SCH (19:14)
[2025-01-31] MEDS: HEPARIN SOD (PORCINE) 1000 UNIT/ML IV ONE (19:14)
[2025-01-31] MEDS: NITROGLYCERIN 2% OINTMENT 30GM TUBE EXT STA (19:21)
[2025-01-31] MEDS: Heparin IV Adult Wt-Based Low-Dose *NO* INITIAL Bolus Protocol IV SCH (19:29)
[2025-01-31] MEDS: Heparin IV Adult Wt-Based Low-Dose w/ INITIAL Bolus Protocol IV STA (19:39)
[2025-01-31] MEDS: CLOPIDOGREL BISULFATE 300 MG TAB PO STA (19:47)
[2025-01-31] MEDS ORDERED: ONDANSETRON INJ 2 MG/ML 2 ML VIAL IV PRN (22:16)
[2025-01-31] MEDS: METOPROLOL TARTRATE 25 MG TAB PO STA (22:37)
[2025-01-31] MEDS: ATORVASTATIN 40 MG TAB PO SCH (23:06)
[2025-01-31] MEDS: NITROGLYCERIN 2% OINTMENT 30GM TUBE EXT SCH (23:11)
[2025-01-31] MEDS: ALUMINUM/MAGNESIUM SUSP 30 ML UDC PO STA (23:53)
[2025-01-31] MEDS: FAMOTIDINE 20MG IV PUSH 20 MG/5 ML SYR IV STA (23:57)
[2025-02-01] MEDS: NITROGLYCERIN SL 0.4 MG/TAB TAB ONE (00:05)
[2025-02-01] MEDS: NITROGLYCERIN SL 0.4 MG/TAB TAB SL STA ×2 (00:18→00:44)
[2025-02-01] MEDS: ACETAMINOPHEN 1,000 MG/100 ML VIAL IV STA (00:44)
[2025-02-01] MEDS: LACTATED RINGER'S 1,000 ML IV ONE (01:06)
--- NOTE | 2025-02-01 01:16 | Communication Note ---
Date of Service: February 01, 2025 Received sign out from day team, requested that I reassess this patient a few hours after receiving nitro to ensure no further chest pain. When first ass essed, patient denied any chest pain. Shortly after, received message from RN that patient had recurrence of the same reflux-like chest pain, variable degree of pain but up to 5-6/10. Repeat EKG essentially unchanged. Trop more of less plateaued. After first dose of SL nitro, pain decreased to 3/10. Administered second dose with near relief of chest pain. Instructed patient to notify RN if chest pain recurs or increases even modestly, no further messages received.
[2025-02-01 02:09] LABS: ANTI-Xa, UFH(UnfractionatedHep 0.64 IU/ml (0.3-0.7)
[2025-02-01 06:56] LABS: Anion Gap 7.0 (3-11); Blood Urea Nitrogen 12.0 mg/dl (6-23); Calcium 8.7 mg/dl (8.6-10.3); Carbon Dioxide 29.0 mmol/L (21-32); Chloride 105.0 mmol/L (98-107); Cholesterol 136.0 mg/dl (0-200); Creatinine Clr Calc Pharmacy 66.6 ml/min; Glucose 88.0 mg/dl (70-99(Fasting)); HDL Cholesterol 49.0 mg/dl; Potassium 3.5 mmol/L (3.5-5.1); Sodium 141.0 mmol/L (136-145); Triglycerides 50.0 mg/dl (0-150)
[2025-02-01 07:15] LABS: Hematocrit (blood only) 36.8 % (37.0-47.0); Hemoglobin 12.0 g/dl (12.0-16.0); Mean Corpuscular Hemoglobin 30.8 pg (25.0-34.0); Mean Corpuscular Volume 94.4 fL (80.0-100.0); Platelet Count 135 K/uL (130-400); RDW Standard Deviation 45.1 fL (36.4-46.3); Red Blood Count 3.90 M/uL (4.20-5.40); White Blood Count 4.52 K/ul (4.8-10.8)
[2025-02-01] MEDS: METOPROLOL TARTRATE 25 MG TAB PO SCH ×2 (07:19→08:47)
[2025-02-01 07:22] LABS: Hemoglobin A1C 5.7 % (4.5-5.6)
[2025-02-01] MEDS: LORATADINE 10 MG TAB PO SCH (08:47)
[2025-02-01] MEDS: CLOPIDOGREL BISULFATE 75 MG TAB PO SCH (08:47)
[2025-02-01] MEDS: ASPIRIN 81 MG ECTAB PO SCH (08:47)
--- NOTE | 2025-02-01 10:39 | Cardiology Consultation ---
Date of Consultation February 01, 2025 Assessment & Plan (1) Elevated troponin: (2) Chest pain: (3) Exertional dyspnea: Plan 1. Chest pain: She describes this as "indigestion", but there are some features concerning for ischemia. The main concern is the exertional nature of her symptoms. Some prolonged episode last evening which occurred at rest. I think based on her description and her elevated biomarkers she deserves a coronary evaluation. We discussed options and elected to proceed with angiography. This will also give us an opportunity to perform a right heart catheterization given her longstanding symptoms of dyspnea. 2. Elevated troponin: Very mild elevation. Most of her symptoms are relatively brief in duration and associated with exertion. She did have a more prolonged episode last evening. Will proceed as noted above. 3. Dyspnea on exertion: Longstanding in nature. Curious she has not had a diagnosis. At 1 point she was told she had "mild asthma". She did not respond or continue to use inhalers. No notable lung pathology on her recent imaging. Will obtain an echocardiogram and perform right heart catheterization as noted above. Will continue beta-blockade, heparin and dual antiplatelet therapy for the time being. Plan on coronary angiography and right heart catheterization when the opportunity arrives. History of Present Illness Reason for Consultation: Chest pain, dyspnea on exertion Requesting Physician: Sharon Attending Physician: Devon Herrera MD History of Present Illness The patient is a 69-year-old woman without a known history of cardiac disease who presented to hospital due to symptoms of exertional "indigestion". Patient states that she has a longstanding history of exertional dyspnea. This takes back nearly 2 decades. She states that on level ground she feels well, but with ascending hills or stairs she has to rest due to shortness of breath. 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 This seems to have a "burning" sensation. There was some fullness in the neck in addition to the precordial symptoms. She would discontinue her activity and the symptom improved. However, this tended to recur throughout the day and the last episode was fairly prolonged in nature. Apparently she had another episode over the course of the evening without activity. This was similar in character. She was given some analgesics and nitroglycerin. Her symptoms gradually resolved over a couple of hours. Currently feeling well. She cannot recall having similar symptoms in the past. She limits her activity due to the dyspnea as well as some sciatica for which she is undergoing injections. She denied any orthopnea. No lower extremity edema. During her recent episode she did notice a sense of palpitation but generally does not have palpitations. She does have some dizziness which is commonly associated with her exertional dyspnea. She reports a very remote history of syncope. Allergies Allergy/AdvReac Type Severity Reaction Status Date / Time mometasone furoate Allergy Unknown UNKNOWN Verified 01/31/25 16:48 erythromycin base AdvReac Intermediate GI SYMPTOMS Verified 01/31/25 16:48 Sulfa (Sulfonamide AdvReac Intermediate GI SYMPTOMS Verified 01/31/25 16:48 Antibiotics) Home Medications Medication Instructions Recorded Confirmed Type loratadine 10 mg tablet 10 mg PO QAM Congestion 02/24/18 01/31/25 History meclizine 12.5 mg tablet 12.5 mg PO UD PRN Vertigo 05/18/19 01/31/25 History polyethylene glycol 3350 17 17 g PO QAM 10/13/20 01/31/25 History gram/dose oral powder (Miralax) conjugated estrogens 0.625 mg/gram 0.625 mg vaginal DAILY PRN vaginal 06/11/21 01/31/25 Rx vaginal cream (Premarin) dryness #30 grams cholecalciferol (vitamin D3) 25 25 mcg PO DAILY 09/03/24 01/31/25 History mcg (1,000 unit) capsule (Vitamin D3) omeprazole 20 mg capsule,delayed 20 mg PO QAM #90 caps 09/17/24 01/31/25 Rx release ondansetron 4 mg disintegrating 4 mg PO Q8H PRN nausea and 10/12/24 01/31/25 Rx tablet vomiting #20 tabs hydrocortisone 2.5 % topical cream 1 applic NM DAILY PRN hemorrhoids 01/22/25 01/31/25 Rx with perineal applicator #30 grams (Proctosol HC) calcium carbonate (Calcium 600) 600 mg PO DAILY 01/31/25 01/31/25 History ibuprofen 200 mg tablet 400 mg PO Q6H PRN Pain 01/31/25 01/31/25 History Patient History Medical History Osteopenia Sciatica Lumbar radiculopathy Greater trochanteric pain syndrome of left lower extremity Acid reflux disease Nausea and vomiting after administration of anesthetic agent "many years ago, but not with any procedures in more recent years" Hx of gastroesophageal reflux (GERD) History of asthma "Mild, no meds" Hx of osteopenia History of anemia no recent issues Hx of low back pain w/sciatica per pt; "has gotten better since recent injection 08/24/24" Chronic SI joint pain 08/24/24 most recent injection, f/[facility] Glaucoma hx SNHL (sensorineural hearing loss) Vertigo hx Surgical History Hx of left cataract extraction (09/12/24) Hx of colonoscopy Hx of exploratory laparotomy 2019, removed appendix Hx laparoscopic cholecystectomy History of bunionectomy H/O: hysterectomy H/O hemorrhoidectomy Family History Grandfather Asthma Aunt Breast cancer Cancer uterus cancer Mother Lung cancer Cancer brain Uncle Cancer brain cancer prostate cancer Prostate cancer Denies family history of Ovarian cancer Myocardial infarction Colorectal cancer Social History Smoking Status: Unknown if ever smoked Second Hand Exposure: Yes (growing up); Do You Dip or Chew Tobacco: No; Hx Alcohol Use: No Hx Substance Use: No Preferred Language: Faroese Communication Ability: Effective Hearing Ability: Normal Windows Mobile Developer Required: No Beliefs That Will Affect Care: None marital status: Current Living Situation: Spouse current occupational status: retired How many Children do You have: 2 Feels Safe at Home: Yes Childhood Exposure to Second-Hand Smoke: Yes Diet: regular caffeine: Yes Dental Care, Regularly: Yes Physical Activity Frequency: 3-4 Times per Week Seatbelt Use: always Sunscreen Use: Yes Assistive Devices: Glasses Review of Systems Review of Systems: Per HPI. History of indigestion improved with use of Protonix Physical Exam Physical Exam: She is alert and oriented x3. Mood affect appear normal. She answered all questions appropriately. HEENT: Sclerae are anicteric. Pupils are equal and reactive to light and accommodation. Extraocular movements were intact. Neuro: Cranial nerves intact Lungs: Lungs are clear to auscultation bilaterally. There are no rales wheezes or rhonchi. She has normal respiratory effort without use of accessory muscles. There is normal pulmonary excursion. Cardiac: The rhythm was regular. S1 and S2 were normal. There are no murmurs on examination. The PMI was not markedly displaced on palpation. Extremities: Patient has bilateral radial pulses that are equal in intensity. There is no evidence cyanosis or clubbing. There was no evidence of significant peripheral edema bilaterally. Skin: There are no rashes noted on examination today. Results & Data Vital Signs (Past 12 Hours) Vital Signs Temp Pulse Pulse Resp BP Pulse Ox O2 Del Method 02/01/25 07:40 55 L 02/01/25 07:28 36.4 C L 50 L 18 127/73 98 Room Air 02/01/25 05:21 35.9 C L 61 16 115/62 97 Nasal Cannula 02/01/25 01:00 60 16 109/66 97 Nasal Cannula 02/01/25 00:52 36.6 C 68 18 100/63 96 Nasal Cannula 02/01/25 00:44 60 16 111/70 98 Nasal Cannula 02/01/25 00:21 63 18 122/75 98 Nasal Cannula 02/01/25 00:06 54 L 16 117/72 98 Nasal Cannula 01/31/25 23:55 54 L 16 113/66 99 Nasal Cannula 01/31/25 23:48 56 L 16 116/69 98 Room Air 01/31/25 23:10 59 L 16 124/75 96 Room Air 01/31/25 22:41 56 L 18 O2 Flow Rate 02/01/25 07:40 02/01/25 07:28 02/01/25 05:21 2 02/01/25 01:00 2 02/01/25 00:52 2 02/01/25 00:44 2 02/01/25 00:21 2 02/01/25 00:06 2 01/31/25 23:55 2 01/31/25 23:48 01/31/25 23:10 01/31/25 22:41 Laboratory Results Abnormal Lab Results 01/31/25 01/31/25 01/31/25 12:41 17:16 23:26 WBC 7.26 RBC 4.83 Hgb 15.1 Hct 45.3 MCV 93.8 MCH 31.3 MCHC 33.3 RDW Std Deviation 45.1 RDW Coeff of Genet 13.1 Plt Count 182 MPV 12.5 H Immature Gran % (Auto) 0.1 Neut % (Auto) 71.4 Lymph % (Auto) 21.1 [place] % (Auto) 5.9 Eos % (Auto) 1.1 Baso % (Auto) 0.4 Neut # (Auto) 5.18 Lymph # (Auto) 1.53 [place] # (Auto) 0.43 Eos # (Auto) 0.08 Baso # (Auto) 0.03 Immature Gran # (Auto) 0.01 PT 10.4 INR 1.0 APTT 28 PTT Ratio 1.0 Heparin Anti-Xa, Unfract Sodium 140 Potassium 3.9 Chloride 103 Carbon Dioxide 26 Anion Gap 11 BUN 15 Creatinine 1.06 Est Cr Clr Drug Dosing 53.4 eGFR 56.51 BUN/Creatinine Ratio 14.2 Glucose 113 H Estimat Average Glucose Hemoglobin A1c Calcium 9.7 Total Bilirubin 0.7 AST 26 ALT 17 Alkaline Phosphatase 67 Troponin I High Sens 5.9 88.1 H* D 92.4 H* Total Protein 7.5 Albumin 4.2 Globulin 3.3 Albumin/Globulin Ratio 1.3 Triglycerides Cholesterol LDL Cholesterol, Calc VLDL Cholesterol, Calc HDL Cholesterol Cholesterol/HDL Ratio Adenovirus (PCR) B. pertussis DNA (PCR) B.parapertussis DNA PCR C. pneumoniae DNA (PCR) Coronavirus OC43 (PCR) Coronavirus HKU1 (PCR) Coronavirus 229E (PCR) SARS-CoV-2 (PCR) Coronavirus NL63 (PCR) Human Metapneumovir PCR Influenza Type A (PCR) Influenza Type B (PCR) M. pneumoniae (PCR) Parainfluenza 1 (PCR) Parainfluenza 2 (PCR) Parainfluenza 3 (PCR) Parainfluenza 4 (PCR) RSV (PCR) Entero/Rhino (PCR) 01/31/25 02/01/25 02/01/25 Unknown 01:15 05:56 WBC 4.52 L RBC 3.90 L Hgb 12.0 D Hct 36.8 L MCV 94.4 MCH 30.8 MCHC 32.6 RDW Std Deviation 45.1 RDW Coeff of Genet 13.2 Plt Count 135 MPV 12.2 Immature Gran % (Auto) Neut % (Auto) Lymph % (Auto) [place] % (Auto) Eos % (Auto) Baso % (Auto) Neut # (Auto) Lymph # (Auto) [place] # (Auto) Eos # (Auto) Baso # (Auto) Immature Gran # (Auto) PT INR APTT PTT Ratio Heparin Anti-Xa, Unfract 0.64 Sodium 141 Potassium 3.5 Chloride 105 Carbon Dioxide 29 Anion Gap 7 BUN 12 Creatinine 0.85 Est Cr Clr Drug Dosing 66.6 eGFR 73.66 BUN/Creatinine Ratio 14.1 Glucose 88 Estimat Average Glucose 117 Hemoglobin A1c 5.7 H Calcium 8.7 Total Bilirubin AST ALT Alkaline Phosphatase Troponin I High Sens 54.0 H* D Total Protein Albumin Globulin Albumin/Globulin Ratio Triglycerides 50 Cholesterol 136 LDL Cholesterol, Calc 77 VLDL Cholesterol, Calc 10 HDL Cholesterol 49 Cholesterol/HDL Ratio 2.8 Adenovirus (PCR) Not Detected B. pertussis DNA (PCR) Not Detected B.parapertussis DNA PCR Not Detected C. pneumoniae DNA (PCR) Not Detected Coronavirus OC43 (PCR) Not Detected Coronavirus HKU1 (PCR) Not Detected Coronavirus 229E (PCR) Not Detected SARS-CoV-2 (PCR) Not Detected Coronavirus NL63 (PCR) Not Detected Human Metapneumovir PCR Not Detected Influenza Type A (PCR) Not Detected Influenza Type B (PCR) Not Detected M. pneumoniae (PCR) Not Detected Parainfluenza 1 (PCR) Not Detected Parainfluenza 2 (PCR) Not Detected Parainfluenza 3 (PCR) Not Detected Parainfluenza 4 (PCR) Not Detected RSV (PCR) Not Detected Entero/Rhino (PCR) Not Detected Diagnostic Findings Chest x-ray did not reveal any acute cardiopulmonary process Chest CTA was suggestive of small right middle lobe infectious process ECG Additional Comments: EKG demonstrated normal sinus rhythm with some mild bradycardia. No ST or T wave changes PG Care Time/CCT Total # of Minutes Spent Total Time Spent with Patient: Total time spent is greater than 50% in coordination of care (as documented) at patient's floor/unit and/or counseling patient: Coding Level of Care Code 03746 INT INP/OBS CARE 3/75MIN Diagnoses Elevated troponin R79.89 Chest pain R07.9 Exertional dyspnea R06.09
--- NOTE | 2025-02-01 10:48 | Electrocardiogram Report ---
Test Reason : Blood Pressure : */* mmHG Vent. Rate : 63 BPM Atrial Rate : 63 BPM P-R Int : 128 ms QRS Dur : 78 ms QT Int : 432 ms P-R-T Axes : 78 -48 43 degrees QTcB Int : 442 ms Normal sinus rhythm Left axis deviation possible Inferior infarct , age undetermined Abnormal ECG When compared with ECG of 31-Jan-2025 12:45, Vent. rate has decreased by 35 bpm Confirmed by Yon Patel ([id number]) on 02/01/2025 10:47:44 AM Referred By: REFERRED SELF Confirmed By: Yon Patel
--- NOTE | 2025-02-01 10:50 | Electrocardiogram Report ---
Test Reason : Blood Pressure : */* mmHG Vent. Rate : 54 BPM Atrial Rate : 54 BPM P-R Int : 154 ms QRS Dur : 86 ms QT Int : 474 ms P-R-T Axes : 65 -44 43 degrees QTcB Int : 449 ms Sinus bradycardia Left axis deviation possible Inferior infarct (cited on or before 31-Jan-2025) Incomplete right bundle branch block Abnormal ECG When compared with ECG of 31-Jan-2025 19:25, (unconfirmed) No significant change was found Confirmed by Yon Patel ([id number]) on 02/01/2025 10:50:07 AM Referred By: REFERRED SELF Confirmed By: Yon Patel
--- NOTE | 2025-02-01 10:52 | Electrocardiogram Report ---
Test Reason : Blood Pressure : */* mmHG Vent. Rate : 49 BPM Atrial Rate : 49 BPM P-R Int : 162 ms QRS Dur : 80 ms QT Int : 510 ms P-R-T Axes : 69 -43 39 degrees QTcB Int : 460 ms Sinus bradycardia Left axis deviation possible Inferior infarct (cited on or before 31-Jan-2025) Abnormal ECG When compared with ECG of 31-Jan-2025 23:23, (unconfirmed) No significant change was found Confirmed by Yon Patel ([id number]) on 02/01/2025 10:52:07 AM Referred By: REFERRED SELF Confirmed By: Yon Patel
--- NOTE | 2025-02-01 14:06 | Hospitalist Progress Note ---
"Date of Service February 01, 2025 Assessment & Plan (1) Exertional dyspnea: (2) Chest pain: (3) NSTEMI (non-ST elevated myocardial infarction): Ronald Stockton is a 69F with a PMHx of GERD , history of asthma, chronic SI joint pain who presents with 24 hours of worsening dyspnea on exertion and chest pain. Initial evaluation with mild trop elevation at 88, CTA chest with small ground glass opacity suggestive of bronchiolitis. Admitted for further cardiac workup #MEJIA | Chest Pain | NSTEMI - MEJIA x 5 years but acutely worsened in the last 24 hours. NSTEMI assumed until cardiac catheterization ASA, clopidogrel, IV heparin low dose with bolus, metoprolol (ordered but not been getting this due to bradycardia), atorvastatin, nitro 1 inch paste Appreciate cardiology evaluation, TTE pending and planning on cardiac catheterization later today Repeat EKG with any chest pain #GERD - continue PPI VTE prophylaxis - IV heparin Disposition - continue on PCU pending cardiac catheterization Admission and Anticipated Discharge Date Admission Date: January 31, 2025 Subjective Noted additional events lasting hours overnight however unclear whether this was her heart given troponin downtrending this morning. Currently chest pain-free when seen. Physical Exam Constitutional: WD/WN, vitals as above Respiratory: normal respiratory effort, lungs clear to auscultation Cardiovascular: RRR, no murmur, no edema Gastrointestinal (Abdomen): normal bowel sounds, soft, nontender, no hepatosplenomegaly Results & Data Results & Data Vital Signs (Past 12 Hours) Vital Signs Temp Pulse Pulse Resp BP Pulse Ox O2 Del Method 02/01/25 13:30 57 L 18 152/85 H 97 Room Air 02/01/25 11:31 36.8 C 50 L 18 156/79 H 96 Room Air 02/01/25 07:40 55 L 02/01/25 07:28 36.4 C L 50 L 18 127/73 98 Room Air 02/01/25 05:21 35.9 C L 61 16 115/62 97 Nasal Cannula O2 Flow Rate 02/01/25 13:30 02/01/25 11:31 02/01/25 07:40 02/01/25 07:28 02/01/25 05:21 2 PG Care Time/CCT Total # of Minutes Spent Total Time Spent with Patient: Total time spent is greater than 50% in coordination of care (as documented) at patient's floor/unit and/or counseling patient: Coding Level of Care Code 26552 SUB INP/OBS CARE 3/50MIN Diagnoses Exertional dyspnea R06.09 Chest pain R07.9 NSTEMI (non-ST elevated myocardial infarction) I21.4"
--- NOTE | 2025-02-01 14:26 | Pre Anesthesia Assessment ---
Date of Service February 01, 2025 Pre Sedation Assessment Vital Signs Temp Pulse Pulse Pulse Resp Resp BP 02/01/25 13:30 57 L 18 152/85 H 02/01/25 11:31 36.8 C 50 L 18 156/79 H 02/01/25 07:40 55 L 02/01/25 07:28 36.4 C L 50 L 18 127/73 02/01/25 05:21 35.9 C L 61 16 115/62 02/01/25 01:00 60 16 109/66 02/01/25 00:52 36.6 C 68 18 100/63 02/01/25 00:44 60 16 111/70 02/01/25 00:21 63 18 122/75 02/01/25 00:06 54 L 16 117/72 01/31/25 23:55 54 L 16 113/66 01/31/25 23:48 56 L 16 116/69 01/31/25 23:10 59 L 16 124/75 01/31/25 22:41 56 L 18 01/31/25 22:17 60 01/31/25 22:15 36.4 C L 60 16 137/75 01/31/25 21:00 65 16 01/31/25 19:59 79 16 01/31/25 18:29 87 18 01/31/25 18:24 78 16 01/31/25 17:42 63 16 01/31/25 17:25 61 01/31/25 17:00 86 22 01/31/25 16:00 55 L 13 01/31/25 14:51 57 L 16 BP Pulse Ox Pulse Ox O2 Del Method O2 Flow Rate 02/01/25 13:30 97 Room Air 02/01/25 11:31 96 Room Air 02/01/25 07:40 02/01/25 07:28 98 Room Air 02/01/25 05:21 97 Nasal Cannula 2 02/01/25 01:00 97 Nasal Cannula 2 02/01/25 00:52 96 Nasal Cannula 2 02/01/25 00:44 98 Nasal Cannula 2 02/01/25 00:21 98 Nasal Cannula 2 02/01/25 00:06 98 Nasal Cannula 2 01/31/25 23:55 99 Nasal Cannula 2 01/31/25 23:48 98 Room Air 01/31/25 23:10 96 Room Air 01/31/25 22:41 01/31/25 22:17 01/31/25 22:15 96 Room Air 01/31/25 21:00 116/66 97 Room Air 01/31/25 19:59 139/82 96 Room Air 01/31/25 18:29 144/80 H 94 01/31/25 18:24 161/80 H 94 01/31/25 17:42 148/73 H 97 Room Air 01/31/25 17:25 01/31/25 17:00 97 Room Air 01/31/25 16:00 129/69 98 Room Air 01/31/25 14:51 138/78 99 Room Air Cardiovascular + regular rate and + regular rhythm Respiratory + respiratory effort normal Pre-Sedation Airway Assessment Smoking Status: Unknown if ever smoked Hx Sleep Apnea: No Hx Difficult Intubation: No Short, Thick Neck: No Thyromental Distance: < 3.5 Finger Breadths Oral Cavity: + WNL Mallampati Class: II ASA: ASA3 NPO Status Date of Last Intake of Fluids: 01/31/25 Time of Last Intake of Fluids: 23:00 Date of Last Intake of Solid Food: 01/31/25 Time of Last Intake of Solid Foods: 21:00 Procedure Planning Contraindications for Sedation: none Current Medications Reviewed: Yes Notes The planned sedation has been discussed with the patient. Informed Consent was obtained. I have identified the patient, determined the appropriateness of sedation and have assessed the patient immediately prior to the procedure. All medicine(s) and interventions are by my order.
[2025-02-01 15:25] LABS: iSTAT Art Bld Gas Base Excess 2.0 mmol/L (-9-1.8)
--- NOTE | 2025-02-01 15:26 | Post Anesthesia Assessment ---
Date of Service February 01, 2025 Post Sedation Assessment Vital Signs Temp Pulse Pulse Pulse Resp Resp BP 02/01/25 13:30 57 L 18 152/85 H 02/01/25 11:31 36.8 C 50 L 18 156/79 H 02/01/25 07:40 55 L 02/01/25 07:28 36.4 C L 50 L 18 127/73 02/01/25 05:21 35.9 C L 61 16 115/62 02/01/25 01:00 60 16 109/66 02/01/25 00:52 36.6 C 68 18 100/63 02/01/25 00:44 60 16 111/70 02/01/25 00:21 63 18 122/75 02/01/25 00:06 54 L 16 117/72 01/31/25 23:55 54 L 16 113/66 01/31/25 23:48 56 L 16 116/69 01/31/25 23:10 59 L 16 124/75 01/31/25 22:41 56 L 18 01/31/25 22:17 60 01/31/25 22:15 36.4 C L 60 16 137/75 01/31/25 21:00 65 16 01/31/25 19:59 79 16 01/31/25 18:29 87 18 01/31/25 18:24 78 16 01/31/25 17:42 63 16 01/31/25 17:25 61 01/31/25 17:00 86 22 01/31/25 16:00 55 L 13 BP Pulse Ox Pulse Ox O2 Del Method O2 Flow Rate 02/01/25 13:30 97 Room Air 02/01/25 11:31 96 Room Air 02/01/25 07:40 02/01/25 07:28 98 Room Air 02/01/25 05:21 97 Nasal Cannula 2 02/01/25 01:00 97 Nasal Cannula 2 02/01/25 00:52 96 Nasal Cannula 2 02/01/25 00:44 98 Nasal Cannula 2 02/01/25 00:21 98 Nasal Cannula 2 02/01/25 00:06 98 Nasal Cannula 2 01/31/25 23:55 99 Nasal Cannula 2 01/31/25 23:48 98 Room Air 01/31/25 23:10 96 Room Air 01/31/25 22:41 01/31/25 22:17 01/31/25 22:15 96 Room Air 01/31/25 21:00 116/66 97 Room Air 01/31/25 19:59 139/82 96 Room Air 01/31/25 18:29 144/80 H 94 01/31/25 18:24 161/80 H 94 01/31/25 17:42 148/73 H 97 Room Air 01/31/25 17:25 01/31/25 17:00 97 Room Air 01/31/25 16:00 129/69 98 Room Air Recovery Score Activity: Moves 4 extremities Respiration: Deep Breath/Cough Circulation: +/-20% PreAnes Value Consciousness: Fully Awake Oxygen Saturation: O2 needed for >90% Discharge Sedation Level of Care: Fast Track Phase II Post Sedation Plan On clinical assessment, the patient appears to have tolerated the sedation without complications. Patient is recovering as anticipated. Patient will continue to be monitored by nursing and may be discharged when sedation discharge criteria are met per below protocol. Upon Completions of procedure up to 15 minutes continue every 5 minute vital signs and the P.A.R. score; then discharge to a Phase I or Fast Track to Phase II per the following guidelines: * Discharge Patient to appropriate Phase II area if PAR is 8 or greater or return to pre- procedure baseline. The post - procedure orders will be as directed. * If PAR score is less than 8 or not return to pre-procedure baseline then patient will follow Phase I monitoring till PAR is reached for Phase II. The Phase I may be done in procedure room or may call to secure a Phase I area. * If naloxone or flumazenil are used for reversal, hold in Phase I for continued monitoring from when last reversal dose was given for a minimum of 60 minutes or longer pending the nurse and/or physician discretion of patient condition before discharge to Phase II. Please call the Sedation Physician to re-evaluate and complete post-note for discharge to Phase II area. Do NOT discharge from procedure sedation or Phase 1 until post- sedation evaluation note is complete by procedure /sedation MD Sedation Discharge Instructions to be given to the patient at discharge to home.
--- NOTE | 2025-02-01 15:26 | Cardiac Catheterization ---
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 Cardiac Status Clinical evaluation leading to the procedure CAD Presenation: Non STEMI Diagnostic Physicians Name: Yon Patel MD Closure Device Recommendations: Medical Therapy and/or Counseling Cardiac Cath Procedure Full Procedure Date February 01, 2025 Pre-Procedure Diagnosis Pre-Procedure Diagnosis: Non STEMI AUC Score AUC Score: 7 Post-Procedure Diagnosis Post-Procedure Diagnosis: Normal Coronary Arteries Procedure(s) Performed Procedure(s) Performed: Coronary Angiography, Right Heart Cath and Electrical Cardioversion Passenger Screener Yon Patel MD Estimated Blood Loss Estimated Blood Loss: 7cc Medication(s) Medication(s): Fentanyl, Heparin, Lidocaine 1%, Metoprolol, Nicardipine, Nitroglycerin and Versed Summary of Findings Procedure performed: Selective coronary angiography, right heart catheterization, cardioversion Staff threading machine tender: Yon Patel MD Indication: The patient is a 69-year-old woman who presented with symptoms of chest discomfort and elevated cardiac biomarkers. Additionally she has a longstanding history of progressive dyspnea on exertion. Procedure in detail: The patient was informed of the risks benefits and alternatives to the intended procedure, he understood such and wished to proceed. She was taken to the cardiac catheterization suite in a fasting state. Conscious sedation was administered per protocol and the patient was monitored electrocardiographically throughout today's procedure. A sterile intravenous catheter was placed in the right antecubital vein. This was used to facilitate passage of a balloontipped catheter for right heart catheterization. The catheter was advanced through the vasculature to the pulmonary artery and wedge position prior to being removed on fluoroscopic guidance. At the conclusion of the case the sheath was removed and hemostasis was achieved at the access site using manual pressure. The right wrist area was prepped and draped in usual sterile fashion. This area was anesthetized using subcutaneous administration of a lidocaine solution. The right radial artery was then accessed using Seldinger technique, and a arterial sheath was placed at this site over a guidewire. The sheath was used to facilitate passage of the cardiac catheter for coronary angiography and left h eart catheterization. Coronary angiogram was then obtained in multiple orthogonal views prior to removal of the catheter. At the conclusion of the procedure the sheath was removed and hemostasis was achieved at the access site using manual pressure. During manipulation of the catheter the patient did develop atrial fibrillation which required cardioversion. The patient tolerated procedure well, there were no immediate complications. Equipment used: 6 Andorran balloontipped PA catheter, 5 Andorran Austin 4 Findings: Coronary angiography Left Main: Left main was normal in size and caliber bifurcated normally into the left anterior descending and left circumflex arteries. Left anterior descending: Left anterior descending was a vessel which reaches the apex. It was quite tortuous in its course. It produced a single large first diagonal branch with some additional diminutive branches towards the apex. No obstructive lesions. Left circumflex: Left circumflex was a nondominant vessel. It produced a large branching first OM and a smaller second OM. The ongoing AV groove vessel was relatively small. No obstructive lesions. Again the patient had very tortuous coronaries in general. Right coronary artery: Right coronary was a large dominant vessel. It produced a large branching posterolateral system with a relatively small PDA branch. No obstructive lesions. Very tortuous. Thermodilution cardiac output 4.4 L/min with an index of 2.3 Mervin cardiac output 8.3 L/min with an index of 4.3 Pulmonary resistance 3.8 Baker units with an index of 7.3 Impression: Right dominant coronary system Tortuous coronaries without obstructive lesions Normal pulmonary pressures and pulmonary wedge pressure Normal cardiac output Hemodynamics Rest Ao:: 83/55 mmHg Final Ao: 94/62 mmHg LV: n/a RA: 1 mmHg RV: 25/0 mmHg PA: 28/4 mmHg PW: 2 mmHg Recommendations Recommendations: Medical Therapy and/or Counseling Radiation Exposure (mGy) 224 Contrast (mls) 25 Procedural Complication(s) None Disposition PCU I attest to the content of the Intraoperative Record and any orders documented therein. Any exceptions are noted below. [facility] Card Cath Procedure Codes Cardiac Catheterization Procedure 1: Cardiovascular Cath Procedures: 93642 Coronaries and RHC Therapeutic Services & Ancillary Procedure 1: Cardiovascular Tx and Anc Procedures: 59249 Cardioversion Moderate Sedation Procedure 1: Sedation/Anesthesia: 85579 Mod Sedation by the same physician;Init15 Min Child Age 5 & Up Procedure 2: Sedation/Anesthesia: 33179 Mod Sedation by the same physician; Ea [id number] Minutes PG Care Time/CCT Total # of Minutes Spent Total Time Spent with Patient: Total time spent is greater than 50% in coordination of care (as documented) at patient's floor/unit and/or counseling patient:
[2025-02-01] MEDS: MIDAZOLAM HCL 1 MG/ML 2ML VIAL ONE ×2 (15:27→15:28)
[2025-02-01] MEDS: niCARdipine 2,000 MCG/20 ML SYR ONE (15:27)
[2025-02-01] MEDS: NITROGLYCERIN/D5W 100MCG/ML 20ML SYR ONE (15:27)
[2025-02-01] MEDS: OPTIRAY 350 ONE (15:28)
[2025-02-01] MEDS: HEPARIN (PORCINE) 1000 UNIT/ML 10 ML (CATH LAB USE ONLY) ONE (15:28)
[2025-02-01 15:36] LABS: iSTAT Art Bld Gas Base Excess -1.0 mmol/L (-9-1.8)
[2025-02-01 15:53] LABS: Magnesium 2.2 mg/dl (1.7-2.4)
[2025-02-01] MEDS ORDERED: ALUMINUM/MAGNESIUM SUSP 30 ML UDC PO PRN (16:56)
--- NOTE | 2025-02-01 17:21 | XCELERA ---
[id number]
[2025-02-01 19:32] VITALS: RESP 18
[2025-02-02 07:54] VITALS: PULSE 57; TEMP 97.9; O2SAT 97
--- NOTE | 2025-02-02 09:51 | Discharge Summary ---
Discharge Summary Date of Service February 02, 2025 Principal Dx & Hospital Course #1 = Principal Diagnosis (1) Exertional dyspnea: (2) Chest pain: (3) NSTEMI (non-ST elevated myocardial infarction): Plan Kath Frank is a 69 year old female admitted to [facility] February 01 - February 02, 2025 due to chest pain and shortness of breath on exertion. Initial workup was concerning for a heart attack with mildly elevated high sensitivity troponins and she was treated as such however subsequent cardiac catheterization and echocardiogram were normal. CT angiogram showed possible area of bronchiolitis although doubtful this was causing her symptoms. Suspect her chest pain was therefore related to gastroesophageal reflux. Recommend increasing omeprazole to twice a day and following up with her primary care provider for this to discuss H. pylori testing and consider upper endoscopy if not resolving. She should avoid NSAIDs. Less clear is what is causing her shortness of breath on exertion which is more longstanding and recommended she follows up with her primary care provider for this to consider lung function testing since her heart appears to be working without any issue. Notes For Next Care Provider Follow up GERD - consider EGD +- h.pylori stool Ag testing Medication Changes From Visit Increased omeprazole to 20mg BID due to uncontrolled GERD Stop ibuprofen due to GERD Admission HPI Per Admitting Provider Kath is a 69F with a PMHx of GERD , history of asthma, chronic SI joint pain who presents with 24 hours of worsening dyspnea on exertion and chest pain. Patient reports that for the last 5 years she has been unable to do a flight of stairs due to shortness of breath and has to take breaks. This has gotten worse in the last 24 hours. Last night she states that she was having worsening heartburn and took some antacids and went to bed, woke up this morning and felt okay. Then when she was running the vacuum she had worsening heartburn and diaphoresis and lightheadedness. She tried to step outside to calm things down, she also reports that her heart was pounding at this time. After that, She was standing at the sink peeling potatoes and her symptoms returned. She had to sit down and continued to feel dizzy and lightheaded. This this is what prompted her to call her and then she presented to the ER. At the time of my assessment she is rating her chest pain symptoms a 1 out of 10 states earlier they are a 6 or 7 out of 10. She recently completed an ambulatory pulse ox trial with the ER nurse and her oxygen stayed above 97% and she did not have any repeat of her symptoms when asked to further explain her symptoms she is not able to describe them any further than what it feels like heartburn. She does report that it radiates up into the neck, she denies that it radiates to the jaw or down the arm. when asked if it feels like a squeezing or tightening sensation she says yes, when asked if it feels like someone is sitting on her chest she also says yes. Her symptoms returned when I asked her to take deep breaths so that I could auscultate her lungs. She does not smoke, has never been a smoker. Does report that her brother and sister have A-fib and that her father from a heart attack. In discussion of CODE STATUS she would like to be a full code ED course: Albuterol inhaler x 2 Discharge Exam Constitutional WD/WN, vitals as above Respiratory normal respiratory effort, lungs clear to auscultation Cardiovascular RRR, no murmur, no edema Discharge Plan Discharge Items Patient Disposition: Home - Self-Care Reason For Visit: CP, ELEVATED TROP Discharge Diagnosis: Gastroesophageal reflux Condition on Discharge: Fair Activity: As commented below Activity Comment: No vigorous use of the right wrist or hand for 7 days Non-emergency contact: Primary Care Provider Call non-emergency contact if: you have any medication questions and your symptoms worsen Follow-up/Referrals: Tram Ricketts CRNP [Primary Care Provider] - 02/07/25 10:30 am Diet: Regular Addtl Attending Provider Instructions: You were admitted to [facility] February 01 - February 02, 2025 due to chest pain and shortness of breath on exertion. Initial workup was concerning for a heart attack however subsequent cardiac catheterization and echocardiogram were normal. Suspect your chest pain was therefore related to gastroesophageal reflux. Recommend increasing you omeprazole to twice a day and following up with your primary care provider for this to discuss H. pylori testing and consider upper endoscopy. Please avoid over the counter pain medications (non steroidal anti inflammatories) except for acetaminophen as this can make your reflux worse. Avoid foods that make your reflux worse such as acidic or caffeinated foods. Please follow up with your primary care provider for further workup of you shortness of breath on exertion. If you have recurrent symptoms over the weekend despite increasing omeprazole please call the hospital on [phone] and ask to talk to Dr Herrera and I will prescribe Carafate in addition. Pending Studies at Discharge: No Stand-Alone Forms: My [facility], Smoking Cessation Medications and DC Order Prescriptions: New omeprazole 20 mg capsule,delayed release(DR/EC) 20 mg PO BID 30 Days Qty: 60 0RF Continued Premarin 0.625 mg/gram cream 0.625 mg vaginal DAILY PRN (Reason: vaginal dryness) Qty: 30 2RF ondansetron 4 mg tablet,disintegrating 4 mg PO Q8H PRN (Reason: nausea and vomiting) Qty: 20 1RF hydrocortisone [Proctosol HC] 2.5 % cream with perineal applicator 1 applic DE DAILY PRN (Reason: hemorrhoids) Qty: 30 1RF polyethylene glycol 3350 [Miralax] 17 gram/dose powder 17 g PO QAM meclizine 12.5 mg Tablet 12.5 mg PO UD PRN (Reason: Vertigo) loratadine 10 mg Tablet 10 mg PO QAM cholecalciferol (vitamin D3) [Vitamin D3] 25 mcg (1,000 unit) Capsule 25 mcg PO DAILY calcium carbonate [Calcium 600] 600 mg calcium (1,500 mg) Tablet 600 mg PO DAILY Discontinued omeprazole 20 mg capsule,delayed release(DR/EC) 20 mg PO QAM Qty: 90 3RF Rx Instructions: [facility] patient requesting prescription be mailed to her home address ibuprofen 200 mg Tablet 400 mg PO Q6H PRN (Reason: Pain) Discharge Orders: Discharge Order (Routine); Ordered 02/02/25 Ordered By: Devon Bang/Other Patient Handouts: GERD Lifestyle Changes, Cardiac Catheterization Dc Admission Data Admit Date/Time: 01/31/25 18:16 Attending Provider: Devon Herrera Admit Provider: Devon Herrera Primary Care Provider: Tram Ricketts Other Providers: Yuan Brunson; Devon Herrera Other Interventions: Discharge Summary Assessment (RN) Last Done: 02/02/25 10:00 Hospital Stay Data Consultations 01/31/25 16:56 ED Decision to Admit Stat 01/31/25 18:12 Consult Cardiology Routine Procedures Performed Operation Date: 02/01/25 13:30 Actual Procedures p Cath, Right and Left Heart - Yon Patel MD s Cineradiography w/Routine Exam - Yon Patel MD s Cardioversion - Yon Patel MD Diagnostic Imagining Performed 01/31/25 13:48 CT angio chest PE protocol Stat IMPRESSION: 1. No pulmonary emboli identified. 2. Small focus of groundglass opacity within the right middle lobe suggestive of an infectious process such as bronchiolitis. 02/01/25 14:33 CL Cath Imgs for PACS use only Stat Pending Results Patient Have Any Pending Studies at Discharge: No Discharge Instructions Given to Patient (Per Discharging Provider) You were admitted to [facility] February 01 - February 02, 2025 due to chest pain and shortness of breath on exertion. Initial workup was concerning for a heart attack however subsequent cardiac catheterization and echocardiogram were normal. Suspect your chest pain was therefore related to gastroesophageal reflux. Recommend increasing you omeprazole to twice a day and following up with your primary care provider for this to discuss H. pylori testing and consider upper endoscopy. Please avoid over the counter pain medications (non steroidal anti inflammatories) except for acetaminophen as this can make your reflux worse. Avoid foods that make your reflux worse such as acidic or caffeinated foods. Please follow up with your primary care provider for further workup of you shortness of breath on exertion. If you have recurrent symptoms over the weekend despite increasing omeprazole please call the hospital on [phone] and ask to talk to Dr Herrera and I will prescribe Carafate in addition. Total Time Total Time Spent Total Time Spent (In Minutes): 35 Total Time Includes: Examination of the Patient, Discharge Planning and Medicat ion Reconciliation Coding Level of Care Code 70891 INP/OBS DISCH >30 MIN Diagnoses Exertional dyspnea R06.09 Chest pain R07.9 NSTEMI (non-ST elevated myocardial infarction) I21.4
[2025-02-02 10:05] VITALS: BP 116/66
--- NOTE | 2025-02-03 05:45 | Electrocardiogram Report ---
Test Reason : Blood Pressure : */* mmHG Vent. Rate : 67 BPM Atrial Rate : 67 BPM P-R Int : 136 ms QRS Dur : 86 ms QT Int : 444 ms P-R-T Axes : 61 -67 68 degrees QTcB Int : 469 ms Normal sinus rhythm Left axis deviation Cannot rule out Inferior infarct Abnormal ECG When compared with ECG of 01-Feb-2025 05:25, No significant change was found Confirmed by Yuan Brunson ([id number]) on 02/03/2025 5:45:29 AM Referred By: REFERRED SELF Confirmed By: Yuan Brunson
== END 2025-02-02 11:42 | disposition home or self-care (01) | DRG 392 ==
LOC: SUATTDRO → ED 12:19 → 4W 18:16